=== PATIENT | male | born 1985 | race Caucasian/White ===

== ENCOUNTER 2019-07-28 00:33 | Emergency (ER) | payer MEDICAID ==
[~2019-07-28] VITALS: Ht 188 cm; Wt 89.8 kg
[2019-07-28 02:53] LABS: CREATININE 1.1 mg/dL (0.6-1.3); POTASSIUM 4.6 mmol/L (3.5-5.1)
[2019-07-28 02:59] LABS: BILIRUBIN,DIRECT 0.1 mg/dL (0.0-0.2); BILIRUBIN,TOTAL 0.5 mg/dL (0.2-1.0); TOTAL PROTEIN, SERUM 7.2 g/dL (6.4-8.2)
[2019-07-28 03:03] LABS: BASOPHILS # (AUTO) 0.1 K/uL (0.0-8.0); BASOPHILS % (AUTO) 0.8 % (0.0-2.0); EOSINOPHILS # (AUTO) 0.2 K/uL (0.0-0.7); EOSINOPHILS % (AUTO) 1.7 % (0.0-7.0); HEMOGLOBIN 14.1 g/dL (12.5-16.3); LYMPHOCYTES # (AUTO) 1.4 K/uL (20.0-40.0); LYMPHOCYTES % (AUTO) 10.2 % (20.5-51.5); MEAN CORPUSCULAR HEMOGLOBIN 29.3 uug (23.8-33.4); MEAN CORPUSCULAR HGB CONC 33 g/dL (32.5-36.3); MEAN CORPUSCULAR VOLUME 89.5 fL (73.0-96.2); MONOCYTES # (AUTO) 0.9 K/uL (2.0-10.0); MONOCYTES % (AUTO) 6.6 % (0.0-11.0); NEUTROPHILS # (AUTO) 10.8 K/uL (1.8-8.9); NEUTROPHILS % (AUTO) 80.7 % (38.5-71.5); PLATELET COUNT (AUTO) 236 K/uL (152-348); WHITE BLOOD COUNT (AUTO) 13.4 K/uL (3.6-10.2)
--- NOTE | 2019-07-28 04:02 | NUR ---
patient alert responsive denies c/o discomfort at this time awaiting completion of test results , patient to ct scan.
--- NOTE | 2019-07-28 04:25 | NUR ---
returned from ct and cxr.
[2019-07-28 05:00] VITALS: BP 122/62
== END 2019-07-28 05:01 | disposition home or self-care (01) ==
LOC: ER 00:33
DX: R55 Syncope and collapse (principal); M54.5 Low back pain; R53.1 Weakness
CPT/HCPCS: 36415; 70030-TC; 70450; 71045; 72125; 85025; 85730; 93005; A4663